=== PATIENT | female | born 1970 | race Hispanic/Latino ===

== ENCOUNTER 2019-08-29 14:10 | Emergency (ER) | payer OTHER ==
[~2019-08-29 14:10] MED LIST: BIEST CREAM
[2019-08-29 15:10] LABS: APPEARANCE,URINE Clear (CLEAR); BILIRUBIN,URINE Negative (NEGATIVE); COLOR,URINE Yellow (YELLOW); GLUCOSE, URINE (UA) Negative (NEGATIVE); KETONES,URINE 15 mg/dL (NEGATIVE); LEUKOCYTE ESTERASE ,URINE Negative (NEGATIVE); NITRATE,URINE Negative (NEGATIVE); OCCULT BLOOD,URINE Moderate (NEGATIVE); PH,URINE 6.5 (5.0-8.0); PROTEIN,URINE Trace mg/dL (NEGATIVE)
[2019-08-29 15:28] LABS: BACTERIA,URINE Few /HPF (None Seen); MUCUS,URINE Few LPF (None Seen)
[2019-08-29 15:47] LABS: RAPID GROUP A STREP NEGATIVE (NEGATIVE)
[2019-08-29] MEDS ORDERED: IBUPROFEN 800 MG TAB ONE (16:17)
[2019-08-29] MEDS ORDERED: ACETAMINOPHEN EXTRA STRENGTH 500 MG TABLET ONE (16:17)
== END 2019-08-29 17:49 | disposition home or self-care (01) ==
LOC: EDH 14:10
DX: J09.X2 Influenza due to identified novel influenza A virus with other respiratory manifestations (principal); Z90.49 Acquired absence of other specified parts of digestive tract; Z90.710 Acquired absence of both cervix and uterus
CPT/HCPCS: 81001; 87088; 87804; 87880